=== PATIENT | female | born 1985 | race American Indian/Alaskan Native ===

== ENCOUNTER 2020-05-10 09:55 | Emergency (ER) | payer SELFPAY ==
[2020-05-10] MEDS ORDERED: levETIRAcetam 1000 MG/NS 0.75% 1,000 MG/100 ML BAG IV ONE ×2 (10:09→12:15)
[2020-05-10] MEDS ORDERED: KETOROLAC 30 MG/1 ML INJ IV ONE (10:09)
--- NOTE | 2020-05-10 10:14 | Emergency Department Report ---
ED Seizure HPI - General Chief Complaint: Seizure Stated Complaint: SEIZURE Time Seen by Provider: 05/10/20 10:06 Source: patient Mode of arrival: Stretcher Limitations: No Limitations - History of Present Illness MD Complaint: seizure -: During the night Description of Episode: tonic-clonic movement, post-event confusion Witnessed:: Yes Trauma: Yes (injury to the inner bottom lip) Seizure History: known seizure disorder, other (ran out of her medications yesterday) Place: home Associated Symptoms: tongue injury. denies: chest pain, confusion, cough, diaphoresis, fever/chills, loss of appetite, malaise, rash, shortness of breath, syncope, weakness, shoulder dislocation - Related Data Previous Rx's Medication Instructions Recorded Last Taken Type OXcarbazepine [Trileptal] 300 mg PO BID #60 tablet 05/10/20 Unknown Rx levETIRAcetam [Keppra TAB] 750 mg PO BID #60 tablet 05/10/20 Unknown Rx Allergies Allergy/AdvReac Type Severity Reaction Status Date / Time No Known Allergies Allergy Unverified 05/10/20 10:07 ED Review of Systems ROS: Stated complaint: SEIZURE Other details as noted in HPI Comment: All other systems reviewed and negative ED Past Medical Hx - Past Medical History Previous Medical History?: Yes Hx Hypertension: Yes Hx Seizures: Yes - Surgical History Past Surgical History?: Yes Hx Appendectomy: Yes - Social History Smoking Status: Never Smoker Substance Use Type: None - Medications Home Medications: Home Medications Medication Instructions Recorded Confirmed Last Taken Type OXcarbazepine [Trileptal] 300 mg PO BID #60 tablet 05/10/20 Unknown Rx levETIRAcetam [Keppra TAB] 750 mg PO BID #60 tablet 05/10/20 Unknown Rx ED Physical Exam - General Limitations: No Limitations General appearance: alert, in no apparent distress - Head Head exam: Present: atraumatic, normocephalic - Eye Eye exam: Present: normal appearance - ENT ENT exam: Present: mucous membranes moist - Expanded ENT Exam Expanded Mouth exam: Present: other (Patient with swelling and abrasion to the inner lower lip also is small abrasions to the tongue) - Neck Neck exam: Present: normal inspection - Respiratory Respiratory exam: Present: normal lung sounds bilaterally. Absent: respiratory distress - Cardiovascular Cardiovascular Exam: Present: regular rate, normal rhythm. Absent: systolic murmur, diastolic murmur, rubs, gallop - GI/Abdominal GI/Abdominal exam: Present: soft, normal bowel sounds - Extremities Exam Extremities exam: Present: normal inspection - Back Exam Back exam: Present: normal inspection - Neurological Exam Neurological exam: Present: alert, oriented X3 - Psychiatric Psychiatric exam: Present: normal affect, normal mood - Skin Skin exam: Present: warm, dry, intact, normal color. Absent: rash ED Course Vital Signs 05/10/20 05/10/20 05/10/20 09:58 10:08 12:30 Temperature 99 F 98.3 F Pulse Rate 85 87 Respiratory 16 16 20 Rate Blood Pressure 154/85 Blood Pressure 188/97 [Right] O2 Sat by Pulse 98 98 98 Oximetry ED Medical Decision Making - Medical Decision Making Patient had one additional seizure on her arrival. Patient was started on Keppra and long term through her IV pulled out and is wasted at least half of the Keppra dose that was given. Patient was ordered an additional gram of Keppra. She was given Ativan stop her seizure she has had no more seizure activity here in emergency department. Patient was stable for discharge and her medication will be refilled. Critical care attestation.: If time is entered above; I have spent that time in minutes in the direct care of this critically ill patient, excluding procedure time. ED Disposition Clinical Impression: Seizure, Seizure secondary to subtherapeutic anticonvulsant medication Lip abrasion Qualifiers: Encounter type: initial encounter Qualified Code(s): S00.511A - Abrasion of lip, initial encounter Disposition: - TO HOME OR SELFCARE Is pt being admited?: No Does the pt Need Aspirin: No Condition: Stable Instructions: Recurrent Seizures Adult (ED) Prescriptions: levETIRAcetam [Keppra TAB] 750 mg PO BID #60 tablet OXcarbazepine [Trileptal] 300 mg PO BID #60 tablet Time of Disposition: 13:46
[2020-05-10] MEDS ORDERED: LORazepam 2 MG/ML VIAL IV ONE (10:22)
[2020-05-10] MEDS ORDERED: ONDANSETRON 4 MG/2 ML INJ ONE (12:02)
[2020-05-10] MEDS ORDERED: ONDANSETRON 4 MG/2 ML INJ IV ONE (12:03)
[2020-05-10 12:32] VITALS: BP 188/97
== END 2020-05-10 14:39 | disposition home or self-care (01) ==
LOC: ED 09:55
DX: S00.511A Abrasion of lip, initial encounter (principal); G40.909 Epilepsy, unspecified, not intractable, without status epilepticus; I10 Essential (primary) hypertension; Z79.899 Other long term (current) drug therapy; Z90.49 Acquired absence of other specified parts of digestive tract; X58.XXXA Exposure to other specified factors, initial encounter; Y93.89 Activity, other specified; Y92.89 Other specified places as the place of occurrence of the external cause; Y99.8 Other external cause status
CPT/HCPCS: 96365; 96375; 99283; J1885; J1953; J2060; J2405

== ENCOUNTER 2020-07-30 17:05 | Emergency (ER) | payer SELFPAY ==
[2020-07-30] MEDS ORDERED: levETIRAcetam 1000 MG/NS 0.75% 1,000 MG/100 ML BAG IV ONE (17:58)
--- NOTE | 2020-07-30 18:08 | Emergency Department Report ---
ED Seizure HPI - General Chief Complaint: Seizure Stated Complaint: SEIZURE Time Seen by Provider: 07/30/20 17:56 Source: patient Mode of arrival: Ambulatory Limitations: No Limitations - History of Present Illness Initial Comments: Patient is 35 years old female with history of seizure. Patient currently taking Keppra 750 twice daily and Trileptal 300 mg twice a day also. Patient brought to the emergency room from home for evaluation of seizure. Patient stated that she had seizure this afternoon witnessed by her similar to her previous one. Patient also stated that she had 1 on Monday. Patient stated that she bit her lip on Monday and she bitted Again today. Patient denied any head injury, neck injury, chest pain, abdominal pain, nausea or vomiting. No shortness of breath, fever or chills. MD Complaint: seizure Description of Episode: loss of consciousness, tonic-clonic movement, post-event confusion Witnessed:: Yes Trauma: No Seizure History: known seizure disorder Place: home Possible Precipitating Event: none Associated Symptoms: denies other symptoms - Related Data Previous Rx's Medication Instructions Recorded Last Taken Type OXcarbazepine [Trileptal] 300 mg PO BID #60 tablet 06/07/20 Unknown Rx levETIRAcetam [Keppra TAB] 750 mg PO BID #60 tablet 06/07/20 Unknown Rx Allergies Allergy/AdvReac Type Severity Reaction Status Date / Time No Known Allergies Allergy Unverified 05/10/20 10:07 ED Review of Systems ROS: Stated complaint: SEIZURE Other details as noted in HPI Comment: All other systems reviewed and negative Constitutional: denies: chills, fever Respiratory: denies: cough, shortness of breath, SOB with exertion, SOB at rest, wheezing Cardiovascular: denies: chest pain, palpitations Gastrointestinal: denies: abdominal pain, nausea, vomiting Musculoskeletal: denies: back pain Neurological: denies: headache, weakness ED Past Medical Hx - Past Medical History Previous Medical History?: Yes Hx Hypertension: Yes Hx Seizures: Yes - Surgical History Past Surgical History?: Yes Hx Appendectomy: Yes - Social History Smoking Status: Never Smoker Substance Use Type: None - Medications Home Medications: Home Medications Medication Instructions Recorded Confirmed Last Taken Type OXcarbazepine [Trileptal] 300 mg PO BID #60 tablet 06/07/20 07/30/20 Unknown Rx levETIRAcetam [Keppra TAB] 750 mg PO BID #60 tablet 06/07/20 07/30/20 Unknown Rx ED Physical Exam - General Limitations: No Limitations General appearance: alert, in no apparent distress - Head Head exam: Present: atraumatic, normocephalic, normal inspection - Eye Eye exam: Present: normal appearance - ENT ENT exam: Present: normal exam, normal orophraynx, mucous membranes moist, other (Approximately 3 to 4days old laceration to the lower lip, no active bleeding.) - Neck Neck exam: Present: normal inspection, full ROM. Absent: tenderness, meningismus - Respiratory Respiratory exam: Present: normal lung sounds bilaterally - Cardiovascular Cardiovascular Exam: Present: regular rate, normal rhythm, normal heart sounds - GI/Abdominal GI/Abdominal exam: Present: soft, normal bowel sounds. Absent: distended, tenderness, guarding, rebound, rigid, hypoactive bowel sounds, organomegaly, mass, bruit, pulsatile mass, hernia - Extremities Exam Extremities exam: Present: normal inspection, full ROM, normal capillary refill. Absent: pedal edema, calf tenderness - Back Exam Back exam: Present: normal inspection, full ROM. Absent: CVA tenderness (R), CVA tenderness (L) - Neurological Exam Neurological exam: Present: alert, oriented X3, CN II-XII intact, normal gait, reflexes normal. Absent: motor sensory deficit - Psychiatric Psychiatric exam: Present: normal mood - Skin Skin exam: Present: warm, intact, normal color ED Course Vital Signs 07/30/20 17:55 Temperature 98.5 F Pulse Rate 77 Respiratory 16 Rate Blood Pressure 171/104 [Left] O2 Sat by Pulse 100 Oximetry ED Medical Decision Making - Lab Data Result diagrams: 07/30/20 18:45 07/30/20 18:45 - Medical Decision Making Patient is 35 years old female with history of seizure. Patient currently taking Keppra 750 twice daily and Trileptal 300 mg twice a day also. Patient brought to the emergency room from home for evaluation of seizure. Patient stated that she had seizure this afternoon witnessed by her similar to her previous one. Patient also stated that she had 1 on Monday. Patient stated that she bit her lip on Monday and she bitted Again today. Patient denied any head injury, neck injury, chest pain, abdominal pain, nausea or vomiting. No shortness of breath, fever or chills. Patient remained seizure-free in the ER. Patient received Keppra 1 g IV. Labs reviewed and is unremarkable. Advised patient to increase her Keppra to 1000 mg twice a day and to follow-up with her neurologist in the next 2 to 3days and to return to the ER if she develop any new symptoms. Critical care attestation.: If time is entered above; I have spent that time in minutes in the direct care of this critically ill patient, excluding procedure time. ED Disposition Clinical Impression: Seizure, Infected lip laceration Disposition: DC- TO HOME OR SELFCARE Is pt being admited?: No Condition: Stable Instructions: Wound Infection (ED), Recurrent Seizures Adult (ED) Referrals: PRIMARY CARE, [Primary Care Provider] - 3-5 Days
[2020-07-30] MEDS ORDERED: KETOROLAC 30 MG/1 ML INJ ONE (18:31)
[2020-07-30] MEDS ORDERED: KETOROLAC 30 MG/1 ML INJ IV ONE (18:35)
[2020-07-30 19:05] LABS: Basophils % (Auto) 0.5 % (0.0-1.8); Eosinophils # (Auto) 0.1 K/mm3 (0.0-0.4); Eosinophils % (Auto) 1.8 % (0.0-4.3); Hematocrit 32.1 % (30.3-42.9); Hemoglobin 10.1 gm/dl (10.1-14.3); Lymphocytes # (Auto) 1.9 K/mm3 (1.2-5.4); Mean Corpuscular HGB Conc 31 % (30-34); Mean Corpuscular Volume 75 fl (79-97); Monocytes # (Auto) 0.4 K/mm3 (0.0-0.8); Monocytes % (Auto) 9.2 % (0.0-7.3); Platelet Count 325 K/mm3 (140-440); Red Blood Count 4.29 M/mm3 (3.65-5.03); Red Cell Distribution Width 19.4 % (13.2-15.2)
[2020-07-30 19:25] LABS: Blood Urea Nitrogen 11 mg/dL (7-17); Calcium 8.9 mg/dL (8.4-10.2); Hemolysis Index 2
[2020-07-30 19:29] LABS: BUN/Creatinine Ratio 16
[2020-07-30 20:18] VITALS: BP 159/89
== END 2020-07-30 20:18 | disposition home or self-care (01) ==
LOC: ED 17:05
DX: S01.511A Laceration without foreign body of lip, initial encounter (principal); G40.909 Epilepsy, unspecified, not intractable, without status epilepticus; I10 Essential (primary) hypertension; Z90.49 Acquired absence of other specified parts of digestive tract; Z79.899 Other long term (current) drug therapy; W50.3XXA Accidental bite by another person, initial encounter; Y93.89 Activity, other specified; Y92.89 Other specified places as the place of occurrence of the external cause; Y99.8 Other external cause status
CPT/HCPCS: 36415; 80048; 84703; 85025; 96374; 96375; 99284; J1885; J1953

== ENCOUNTER 2020-09-05 07:08 | Emergency (ER) | payer MEDICAID ==
[2020-09-05] MEDS ORDERED: levETIRAcetam 1000 MG/NS 0.75% 1,000 MG/100 ML BAG IV ONE (07:39)
[2020-09-05 07:50] VITALS: BP 146/84
[2020-09-05 08:17] LABS: Basophils % (Auto) 0.3 % (0.0-1.8); Eosinophils % (Auto) 0.5 % (0.0-4.3); Hematocrit 32.7 % (30.3-42.9); Hemoglobin 10.7 gm/dl (10.1-14.3); Lymphocytes # (Auto) 1.4 K/mm3 (1.2-5.4); Lymphocytes % (Auto) 22.7 % (13.4-35.0); Mean Corpuscular HGB Conc 33 % (30-34); Mean Corpuscular Volume 75 fl (79-97); Monocytes # (Auto) 0.6 K/mm3 (0.0-0.8); Monocytes % (Auto) 9.5 % (0.0-7.3); Platelet Count 310 K/mm3 (140-440); Red Blood Count 4.39 M/mm3 (3.65-5.03); Red Cell Distribution Width 18.4 % (13.2-15.2)
[2020-09-05 08:29] LABS: BUN/Creatinine Ratio 16; Blood Urea Nitrogen 14 mg/dL (7-17); Calcium 9.1 mg/dL (8.4-10.2); Hemolysis Index 7
[2020-09-05] MEDS ORDERED: LORazepam 2 MG/ML VIAL IV ONE ×2 (09:13→10:16)
[2020-09-05] MEDS ORDERED: LORazepam 2 MG/ML VIAL ONE (09:14)
--- NOTE | 2020-09-05 09:21 | Emergency Department Report ---
ED Seizure HPI - General Chief Complaint: Seizure Stated Complaint: SEIZURE Time Seen by Provider: 09/05/20 07:39 Source: EMS Mode of arrival: Ambulatory Limitations: No Limitations - History of Present Illness Initial Comments: Patient is a 35-year-old female with past medical history of seizure disorder who had a tonic-clonic seizure today. Patient not had a seizure in approximately 1 month. She states she is compliant with her Keppra. Patient did bite her bottom lip during the seizure. She is no longer postictal and has no other complaints at this time. She denies cough cold congestion fevers or chills. - Related Data Previous Rx's Medication Instructions Recorded Last Taken Type levETIRAcetam [Keppra TAB] 750 mg PO BID #60 tablet 06/07/20 Unknown Rx cephALEXin [Keflex] 500 mg PO Q8HR #28 cap 07/30/20 Unknown Rx OXcarbazepine [Trileptal] 300 mg PO BID #60 tablet 09/05/20 Unknown Rx levETIRAcetam [Keppra TAB] 1,000 mg PO BID #60 tab 09/05/20 Unknown Rx Allergies Allergy/AdvReac Type Severity Reaction Status Date / Time No Known Allergies Allergy Unverified 05/10/20 10:07 ED Review of Systems ROS: Stated complaint: SEIZURE Other details as noted in HPI Comment: All other systems reviewed and negative ED Past Medical Hx - Past Medical History Previous Medical History?: Yes Hx Hypertension: Yes Hx Seizures: Yes - Surgical History Past Surgical History?: Yes Hx Appendectomy: Yes - Social History Smoking Status: Never Smoker Substance Use Type: None - Medications Home Medications: Home Medications Medication Instructions Recorded Confirmed Last Taken Type levETIRAcetam [Keppra TAB] 750 mg PO BID #60 tablet 06/07/20 07/30/20 Unknown Rx cephALEXin [Keflex] 500 mg PO Q8HR #28 cap 07/30/20 Unknown Rx OXcarbazepine [Trileptal] 300 mg PO BID #60 tablet 09/05/20 Unknown Rx levETIRAcetam [Keppra TAB] 1,000 mg PO BID #60 tab 09/05/20 Unknown Rx ED Physical Exam - General Limitations: No Limitations General appearance: alert, in no apparent distress - Head Head exam: Present: atraumatic, normocephalic - Eye Eye exam: Present: normal appearance - ENT ENT exam: Present: mucous membranes moist, other (2 cm laceration to the inner lower lip. This is not through and through. She does have some mild swelling to the bottom lip as well.) - Neck Neck exam: Present: normal inspection - Respiratory Respiratory exam: Present: normal lung sounds bilaterally. Absent: respiratory distress, wheezes, rales - Cardiovascular Cardiovascular Exam: Present: regular rate, normal rhythm, normal heart sounds. Absent: systolic murmur, diastolic murmur, rubs, gallop - GI/Abdominal GI/Abdominal exam: Present: soft, normal bowel sounds. Absent: distended, tenderness, guarding, rebound - Extremities Exam Extremities exam: Present: normal inspection - Back Exam Back exam: Present: normal inspection - Neurological Exam Neurological exam: Present: alert, oriented X3 - Psychiatric Psychiatric exam: Present: normal affect, normal mood - Skin Skin exam: Present: warm, dry, intact, normal color. Absent: rash ED Course Vital Signs 09/05/20 09/05/20 07:45 10:35 Temperature 98.4 F Pulse Rate 93 H Respiratory 18 18 Rate Blood Pressure 146/84 Blood Pressure 142/86 [Right] O2 Sat by Pulse 100 100 Oximetry - Reevaluation(s) Reevaluation #1: 09/05/20 09:17 Patient's first dose of Keppra. To run out onto the bed. Patient pulled her IV out. At this time second attempt I given the patient a bolus of Keppra is underway with the patient and not having a seizure. Patient given 2 mg of Ativan. We will continue to monitor the patient. Patient is given Keppra infusion now. 09/05/20 14:37 Reevaluation #2: 09/05/20 14:38 While the patient was approximately 50% done with her Keppra infusion she had another grand mal seizure. She had to be given another 2 mg of Ativan. Watch the patient for several hours and she now is much more coherent but still sligh tly groggy from the Ativan. Keppra infusion has finished. Patient will be able to be discharged after she is more steady on her feet. ED Medical Decision Making - Lab Data Result diagrams: 09/05/20 08:02 09/05/20 08:02 Lab Results 10/24/20 10/24/20 Range/Units 08:02 08:02 WBC 6.1 (4.5-11.0) K/mm3 RBC 4.39 (3.65-5.03) M/mm3 Hgb 10.7 (10.1-14.3) gm/dl Hct 32.7 (30.3-42.9) % MCV 75 L (79-97) fl MCH 24 L (28-32) pg MCHC 33 (30-34) % RDW 18.4 H (13.2-15.2) % Plt Count 310 (140-440) K/mm3 Lymph % (Auto) 22.7 (13.4-35.0) % [place] % (Auto) 9.5 H (0.0-7.3) % Eos % (Auto) 0.5 (0.0-4.3) % Baso % (Auto) 0.3 (0.0-1.8) % Lymph # (Auto) 1.4 (1.2-5.4) K/mm3 [place] # (Auto) 0.6 (0.0-0.8) K/mm3 Eos # (Auto) 0.0 (0.0-0.4) K/mm3 Baso # (Auto) 0.0 (0.0-0.1) K/mm3 Seg Neutrophils % 67.0 (40.0-70.0) % Seg Neutrophils # 4.1 (1.8-7.7) K/mm3 Sodium 138 (137-145) mmol/L Potassium 4.3 (3.6-5.0) mmol/L Chloride 106.7 (98-107) mmol/L Carbon Dioxide 22 (22-30) mmol/L Anion Gap 14 mmol/L BUN 14 (7-17) mg/dL Creatinine 0.9 (0.6-1.2) mg/dL Estimated GFR > 60 ml/min BUN/Creatinine Ratio 16 % Glucose 99 (65-100) mg/dL Calcium 9.1 (8.4-10.2) mg/dL Critical care attestation.: If time is entered above; I have spent that time in minutes in the direct care of this critically ill patient, excluding procedure time. ED Disposition Clinical Impression: Seizure Disposition: DC- TO HOME OR SELFCARE Is pt being admited?: No Does the pt Need Aspirin: No Condition: Stable Instructions: Recurrent Seizures Adult (ED) Prescriptions: levETIRAcetam [Keppra TAB] 1,000 mg PO BID #60 tab OXcarbazepine [Trileptal] 300 mg PO BID #60 tablet Referrals: DENY FORTUNE MD [Referring] - 3-5 Days Time of Disposition: 14:39
[2020-09-05] MEDS ORDERED: KETOROLAC 60 MG/2 ML INJ ONE (14:05)
[2020-09-05] MEDS ORDERED: KETOROLAC 30 MG/1 ML INJ IV ONE (15:28)
== END 2020-09-05 15:58 | disposition home or self-care (01) ==
LOC: ED 07:08
DX: R56.9 Unspecified convulsions (principal); I10 Essential (primary) hypertension; Z90.49 Acquired absence of other specified parts of digestive tract; Z79.899 Other long term (current) drug therapy
CPT/HCPCS: 36415; 80048; 85025; 96374; 96375; 96376; 99284; J1885; J1953; J2060

== ENCOUNTER 2020-09-14 15:43 | Emergency (ER) | payer MEDICAID ==
--- NOTE | 2020-09-14 16:31 | Emergency Department Report ---
Blank Doc - Documentation Documentation: 35-year-old female that was sent by her OBGYN for HTN. Stated is 7 weeks preg nant. This initial assessment/diagnostic orders/clinical plan/treatment(s) is/are subject to change based on patient's health status, clinical progression and re- assessment by fellow clinical providers in the ED. Further treatment and workup at subsequent clinical providers discretion. Patient/guardians urged not to elope from the ED as their condition may be serious if not clinically assessed and managed. Initial orders include: 1- Patient sent to [facility] for further evaluation and treatment 2- labs 3- UA
[2020-09-14 17:00] LABS: Basophils % (Auto) 0.7 % (0.0-1.8); Eosinophils # (Auto) 0.1 K/mm3 (0.0-0.4); Eosinophils % (Auto) 1.2 % (0.0-4.3); Hematocrit 32.1 % (30.3-42.9); Hemoglobin 10.3 gm/dl (10.1-14.3); Lymphocytes % (Auto) 41.2 % (13.4-35.0); Mean Corpuscular HGB Conc 32 % (30-34); Mean Corpuscular Volume 76 fl (79-97); Monocytes # (Auto) 0.4 K/mm3 (0.0-0.8); Monocytes % (Auto) 7.9 % (0.0-7.3); Platelet Count 277 K/mm3 (140-440); Red Blood Count 4.25 M/mm3 (3.65-5.03); Red Cell Distribution Width 18.7 % (13.2-15.2)
[2020-09-14 17:23] LABS: Alanine Aminotransferase 15 units/L (7-56); Albumin 3.9 g/dL (3.9-5); BUN/Creatinine Ratio 14; Blood Urea Nitrogen 11 mg/dL (7-17); Calcium 8.9 mg/dL (8.4-10.2); Hemolysis Index 2
--- NOTE | 2020-09-14 17:39 | Emergency Department Report ---
ED General Adult HPI - General Chief complaint: Medical Clearance Stated complaint: HBP Time Seen by Provider: 09/14/20 16:30 Source: patient Mode of arrival: Ambulatory Limitations: No Limitations - History of Present Illness Initial comments: 35-year-old female with history of chronic hypertension presents to ED with elevated blood pressure. Patient was seen at [facility] OB today, found to be 7 weeks . While at the appointment, patient found to have elevated blood pressure and was advised to come to the ED for treatment. Patient denies any headache, dizziness, chest pain, shortness of breath. Patient cannot remember what medication she was on previously. -: unknown Improves with: none Worsens with: cold therapy Associated Symptoms: denies other symptoms. denies: chest pain, headaches, shortness of breath - Related Data Previous Rx's Medication Instructions Recorded Last Taken Type levETIRAcetam [Keppra TAB] 750 mg PO BID #60 tablet 06/07/20 Unknown Rx cephALEXin [Keflex] 500 mg PO Q8HR #28 cap 07/30/20 Unknown Rx OXcarbazepine [Trileptal] 300 mg PO BID #60 tablet 09/05/20 Unknown Rx levETIRAcetam [Keppra TAB] 1,000 mg PO BID #60 tab 09/05/20 Unknown Rx labetaloL [Labetalol 100mg TAB] 100 mg PO BID #60 tablet 09/14/20 Unknown Rx Allergies Allergy/AdvReac Type Severity Reaction Status Date / Time No Known Allergies Allergy Unverified 05/10/20 10:07 ED Review of Systems ROS: Stated complaint: HBP Other details as noted in HPI Comment: All other systems reviewed and negative Respiratory: denies: shortness of breath Cardiovascular: denies: chest pain Neurological: denies: headache, vertigo ED Past Medical Hx - Past Medical History Previous Medical History?: Yes Hx Hypertension: Yes Hx Seizures: Yes - Surgical History Past Surgical History?: Yes Hx Appendectomy: Yes - Social History Smoking Status: Never Smoker Substance Use Type: None - Medications Home Medications: Home Medications Medication Instructions Recorded Confirmed Last Taken Type levETIRAcetam [Keppra TAB] 750 mg PO BID #60 tablet 06/07/20 07/30/20 Unknown Rx cephALEXin [Keflex] 500 mg PO Q8HR #28 cap 07/30/20 Unknown Rx OXcarbazepine [Trileptal] 300 mg PO BID #60 tablet 09/05/20 Unknown Rx levETIRAcetam [Keppra TAB] 1,000 mg PO BID #60 tab 09/05/20 Unknown Rx labetaloL [Labetalol 100mg TAB] 100 mg PO BID #60 tablet 09/14/20 Unknown Rx ED Physical Exam - General Limitations: No Limitations General appearance: alert, in no apparent distress - Head Head exam: Present: atraumatic, normocephalic - Eye Eye exam: Present: normal appearance, EOMI - ENT ENT exam: Present: mucous membranes moist - Neck Neck exam: Present: normal inspection - Respiratory Respiratory exam: Present: normal lung sounds bilaterally. Absent: respiratory distress - Cardiovascular Cardiovascular Exam: Present: regular rate, normal rhythm - GI/Abdominal GI/Abdominal exam: Present: soft. Absent: distended, tenderness - Extremities Exam Extremities exam: Present: normal inspection - Neurological Exam Neurological exam: Present: alert, oriented X3, CN II-XII intact. Absent: motor sensory deficit - Psychiatric Psychiatric exam: Present: normal affect, normal mood - Skin Skin exam: Present: warm, dry, intact, normal color ED Course Vital Signs 09/14/20 09/14/20 15:48 18:00 Temperature 97.8 F Pulse Rate 82 Respiratory 18 Rate Blood Pressure 170/101 Blood Pressure 176/98 [Right] O2 Sat by Pulse 100 100 Oximetry ED Medical Decision Making - Lab Data Result diagrams: 09/14/20 16:50 09/14/20 16:50 - Medical Decision Making 35-year-old female with asymptomatic hypertension, history of chronic hypertension, not currently on any medications. Patient is currently 7 weeks . Labs are normal. Patient given prescription for labetalol. Advised OB follow-up. Return precautions given. Critical care attestation.: If time is entered above; I have spent that time in minutes in the direct care of this critically ill patient, excluding procedure time. ED Disposition Clinical Impression: Uncontrolled hypertension, Early stage of Disposition: DC-01 TO HOME OR SELFCARE Is pt being admited?: No Condition: Stable Instructions: Hypertension (ED) Prescriptions: labetaloL [Labetalol 100mg TAB] 100 mg PO BID #60 tablet Referrals: [facility] [Provider Group] - 3-5 Days Time of Disposition: 17:39
[2020-09-14 18:12] VITALS: BP 170/101
[2020-09-14 18:15] LABS: Bilirubin,Urine NEG (Negative); Blood,Urine NEG (Negative); Color,Urine Yellow (Yellow); Mucus,Urine FEW /HPF; Protein,Urine <15 mg/dL mg/dL (Negative); Urobilinogen,Urine < 2.0 mg/dL (<2.0)
== END 2020-09-14 18:05 | disposition home or self-care (01) ==
LOC: ED 15:43
DX: O16.1 Unspecified maternal hypertension, first trimester (principal); Z79.899 Other long term (current) drug therapy; Z86.69 Personal history of other diseases of the nervous system and sense organs; Z90.49 Acquired absence of other specified parts of digestive tract; Z3A.01 Less than 8 weeks gestation of pregnancy
CPT/HCPCS: 36415; 80053; 81001; 84702; 85025

== ENCOUNTER 2020-11-16 10:10 | Emergency (ER) | payer MEDICAID ==
[2020-11-16] MEDS ORDERED: levETIRAcetam 1000 MG/NS 0.75% 1,000 MG/100 ML BAG IV ONE (10:18)
--- NOTE | 2020-11-16 10:20 | Emergency Department Report ---
ED Seizure HPI - General Stated Complaint: SEIZURE Time Seen by Provider: 11/16/20 10:18 Source: patient, EMS, old records reviewed Mode of arrival: Stretcher Limitations: Altered Mental Status - History of Present Illness Initial Comments: 35-year female the past medical history of seizures and elevated blood pressure presents to the hospital after having multiple seizures prior to arrival. Patient presents postictal and unable to provide history of present illness. EMS obtained history from boyfriend at the scene who reported patient had a seizure and has smoked marijuana from a new supplier. Patient also has did not have her a.m. seizure medication. EMS witnessed 2 seizures in route and provided Versed 2.5 mg IV. Patient had a third witnessed seizure in route and received additional 2.5 Versed IV. Patient also apparently complained of nausea in route. Previous medical record reviewed. Patient has been here multiple times for seizure disorder. In July 2020 visit note that she is on Keppra 750 twice daily and Trileptal 300 twice daily. Last visit on record was from September 14, 2020 and patient is noted to be "7 weeks " but only had a quant of 305 at that time. Patient was noted to be hypertensive and was started on labetalol. It is unclear the status of that however, boyfriend did not mention to EMS providers. It is also unclear patient is currently taken blood pressure medication at this time. Patient presents altered, mildly agitated, with nonrebreather and nasal trumpet in place - Related Data Previous Rx's Medication Instructions Recorded Last Taken Type levETIRAcetam [Keppra TAB] 750 mg PO BID #60 tablet 06/07/20 Unknown Rx cephALEXin [Keflex] 500 mg PO Q8HR #28 cap 07/30/20 Unknown Rx OXcarbazepine [Trileptal] 300 mg PO BID #60 tablet 09/05/20 Unknown Rx levETIRAcetam [Keppra TAB] 1,000 mg PO BID #60 tab 09/05/20 Unknown Rx labetaloL [Labetalol 100mg TAB] 100 mg PO BID #60 tablet 09/14/20 Unknown Rx Ibuprofen [Motrin] 800 mg PO Q8HR PRN #20 tablet 11/16/20 Unknown Rx Allergies Allergy/AdvReac Type Severity Reaction Status Date / Time No Known Allergies Allergy Unverified 11/16/20 10:25 ED Review of Systems ROS: Stated complaint: SEIZURE Other details as noted in HPI Comment: Unobtainable due to pts medical conditions ED Past Medical Hx - Past Medical History Hx Hypertension: Yes Hx Seizures: Yes - Surgical History Hx Appendectomy: Yes - Social History Smoking Status: Never Smoker Substance Use Type: None - Medications Home Medications: Home Medications Medication Instructions Recorded Confirmed Last Taken Type levETIRAcetam [Keppra TAB] 750 mg PO BID #60 tablet 06/07/20 07/30/20 Unknown Rx cephALEXin [Keflex] 500 mg PO Q8HR #28 cap 07/30/20 Unknown Rx OXcarbazepine [Trileptal] 300 mg PO BID #60 tablet 09/05/20 Unknown Rx levETIRAcetam [Keppra TAB] 1,000 mg PO BID #60 tab 09/05/20 Unknown Rx labetaloL [Labetalol 100mg TAB] 100 mg PO BID #60 tablet 09/14/20 Unknown Rx Ibuprofen [Motrin] 800 mg PO Q8HR PRN #20 tablet 11/16/20 Unknown Rx ED Physical Exam - Other Other exam information: General: Postictal Head: Atraumatic Eyes: normal appearance, pupils equal reactive to ENT: Moist mucous membranes Neck: Normal appearance, no midline tenderness Chest: Clear to auscultation bilaterally CV: Regular rate and rhythm Abdomen: Soft, normal bowel sounds, nontender, nondistended, no rebound or guarding Back: Normal inspection Extremity: Normal inspection, full range of motion Neuro: Postictal/altered, moves all extremities with 5/5 strength, agitated would not follow commands. Sensation grossly intact Psych: Appropriate behavior Skin: No rash ED Course Vital Signs 11/16/20 11/16/20 11/16/20 10:33 10:44 11:01 Temperature Pulse Rate 89 Respiratory 29 H 20 27 H Rate Blood Pressure 158/98 O2 Sat by Pulse 100 100 100 Oximetry 11/16/20 11/16/20 11/16/20 11:31 12:01 12:28 Temperature Pulse Rate 76 71 78 Respiratory 21 23 Rate Blood Pressure 197/106 188/111 182/107 O2 Sat by Pulse 100 100 Oximetry 11/16/20 11/16/20 11/16/20 13:02 14:32 14:34 Temperature 98.8 F Pulse Rate Respiratory 18 18 Rate Blood Pressure O2 Sat by Pulse Oximetry - Reevaluation(s) Reevaluation #1: 11/16/20 13:50 Patient is now alert and oriented at this time. Complains of generalized body aches and headache. CT head unremarkable. Patient informed that she had multiple seizures. She confirms that she did not have her a.m. medications for seizures of blood pressure but is otherwise compliant with her Trileptal, Keppra, and labetalol. She also confirmed that she did use marijuana and has recently had a miscarriage which is consistent with her decreasing hCG levels 11/16/20 15:31 Patient provided IV morphine and Toradol for generalized body aches secondary to multiple seizures. Blood pressure remains elevated despite multiple doses of IV labetalol. P.o. labetalol ordered at the dose she is prescribed for home. Patient's mental status is improving. Patient is sleepy but easily arousable. ED Medical Decision Making - Lab Data Result diagrams: 11/16/20 10:41 11/16/20 10:41 Lab Results 11/16/20 11/16/20 11/16/20 Range/Units 10:41 10:41 10:41 WBC 7.3 (4.5-11.0) K/mm3 RBC 3.87 (3.65-5.03) M/mm3 Hgb 10.1 (10.1-14.3) gm/dl Hct 31.2 (30.3-42.9) % MCV 81 (79-97) fl MCH 26 L (28-32) pg MCHC 32 (30-34) % RDW 19.1 H (13.2-15.2) % Plt Count 314 (140-440) K/mm3 Lymph % (Auto) 15.0 (13.4-35.0) % Schley % (Auto) 3.8 (0.0-7.3) % Eos % (Auto) 0.2 (0.0-4.3) % Baso % (Auto) 0.5 (0.0-1.8) % Lymph # (Auto) 1.1 L (1.2-5.4) K/mm3 Schley # (Auto) 0.3 (0.0-0.8) K/mm3 Eos # (Auto) 0.0 (0.0-0.4) K/mm3 Baso # (Auto) 0.0 (0.0-0.1) K/mm3 Seg Neutrophils % 80.5 H (40.0-70.0) % Seg Neutrophils # 5.9 (1.8-7.7) K/mm3 Sodium 138 (137-145) mmol/L Potassium 4.8 (3.6-5.0) mmol/L Chloride 106.9 (98-107) mmol/L Carbon Dioxide 14 L (22-30) mmol/L Anion Gap 22 mmol/L BUN 11 (7-17) mg/dL Creatinine 1.1 (0.6-1.2) mg/dL Estimated GFR > 60 ml/min BUN/Creatinine Ratio 10 % Glucose 97 (65-100) mg/dL Calcium 9.5 (8.4-10.2) mg/dL Magnesium 2.60 H (1.7-2.3) mg/dL HCG, Quant 4.18 H (0-4) mIU/mL Urine Opiates Screen Urine Methadone Screen Ur Barbiturates Screen Ur Phencyclidine Scrn Ur Amphetamines Screen U Benzodiazepines Scrn Urine Cocaine Screen U Marijuana (THC) Screen Drugs of Abuse Note 11/16/20 Range/Units Unknown WBC (4.5-11.0) K/mm3 RBC (3.65-5.03) M/mm3 Hgb (10.1-14.3) gm/dl Hct (30.3-42.9) % MCV (79-97) fl MCH (28-32) pg MCHC (30-34) % RDW (13.2-15.2) % Plt Count (140-440) K/mm3 Lymph % (Auto) (13.4-35.0) % Schley % (Auto) (0.0-7.3) % Eos % (Auto) (0.0-4.3) % Baso % (Auto) (0.0-1.8) % Lymph # (Auto) (1.2-5.4) K/mm3 Schley # (Auto) (0.0-0.8) K/mm3 Eos # (Auto) (0.0-0.4) K/mm3 Baso # (Auto) (0.0-0.1) K/mm3 Seg Neutrophils % (40.0-70.0) % Seg Neutrophils # (1.8-7.7) K/mm3 Sodium (137-145) mmol/L Potassium (3.6-5.0) mmol/L Chloride (98-107) mmol/L Carbon Dioxide (22-30) mmol/L Anion Gap mmol/L BUN (7-17) mg/dL Creatinine (0.6-1.2) mg/dL Estimated GFR ml/min BUN/Creatinine Ratio % Glucose (65-100) mg/dL Calcium (8.4-10.2) mg/dL Magnesium (1.7-2.3) mg/dL HCG, Quant (0-4) mIU/mL Urine Opiates Screen Negative Urine Methadone Screen Negative Ur Barbiturates Screen Negative Ur Phencyclidine Scrn Negative Ur Amphetamines Screen Negative U Benzodiazepines Scrn Positive Urine Cocaine Screen Negative U Marijuana (THC) Screen Positive Drugs of Abuse Note Disclamer - Radiology Data Radiology results: report reviewed CHEST 1 VIEW INDICATION: multiple seizures. COMPARISON: None FINDINGS: Support devices: None. Heart: Within normal limits. Lungs/Pleura: No acute air space or interstitial disease. Mild bibasilar atelectatic changes are noted. Additional findings: None. IMPRESSION: Mild bibasilar atelectatic changes. No acute process. CT BRAIN: 11/16/2020 INDICATION / CLINICAL INFORMATION: multiple seizures, postictal, elevated bp. COMPARISON: 06/07/2020 FINDINGS: BRAIN/INTRACRANIAL STRUCTURES: Unenhanced CT images of the brain demonstrate no evidence of acute intracranial abnormality. Ventricles and sulci are normal in size and shape. There is no evidence of ischemic injury, hemorrhage, or mass. There are no abnormal extra-axial fluid collections. EXTRACRANIAL STRUCTURES: Unremarkable. IMPRESSION: Negative unenhanced CT of the brain. No significant change when compared to 06/07/2020. - Medical Decision Making 35-year-old female presents to the hospital complaints of multiple seizures and missing her a.m. dose of medications. Also noted to be hypertensive with previous history. Patient treated with Keppra and Trileptal with no further seizure activity. Patient given IV labetalol in the ED and p.o. labetalol prior to discharge. Previous chronic hypertension as per previous medical record review. Currently she does not have any signs of hypertensive emergency Critical Care Time: Yes Critical care time in (mins) excluding proc time.: 35 Critical care attestation.: If time is entered above; I have spent that time in minutes in the direct care of this critically ill patient, excluding procedure time. ED Disposition Clinical Impression: Seizures, Uncontrolled hypertension, Marijuana use Disposition: TO HOME OR SELFCARE Is pt being admited?: No Does the pt Need Aspirin: No Condition: Stable Instructions: Epilepsy, Hypertension, Adult, [id number], Hypertension (ED) Additional Instructions: Take your current medications as prescribed. Follow-up with your doctor or doctor/clinic provided. Return if symptoms worsen as indicated by your discharge instructions. Prescriptions: Ibuprofen [Motrin] 800 mg PO Q8HR PRN #20 tablet PRN Reason: Pain , Severe (7-10) Referrals: PRIMARY CARE, [Primary Care Provider] - 3-5 Days LYUBOV RIOS MD [Staff Physician] - 3-5 Days (Neurologist) [facility] [Provider Group] - 3-5 Days (Primary care clinic)
[2020-11-16] MEDS ORDERED: ONDANSETRON 4 MG/2 ML INJ IV ONE (10:29)
[2020-11-16 11:29] LABS: Basophils % (Auto) 0.5 % (0.0-1.8); Eosinophils % (Auto) 0.2 % (0.0-4.3); Hematocrit 31.2 % (30.3-42.9); Hemoglobin 10.1 gm/dl (10.1-14.3); Lymphocytes # (Auto) 1.1 K/mm3 (1.2-5.4); Mean Corpuscular HGB Conc 32 % (30-34); Mean Corpuscular Volume 81 fl (79-97); Monocytes # (Auto) 0.3 K/mm3 (0.0-0.8); Monocytes % (Auto) 3.8 % (0.0-7.3); Platelet Count 314 K/mm3 (140-440); Red Blood Count 3.87 M/mm3 (3.65-5.03); Red Cell Distribution Width 19.1 % (13.2-15.2)
[2020-11-16 11:49] LABS: BUN/Creatinine Ratio 10; Blood Urea Nitrogen 11 mg/dL (7-17); Calcium 9.5 mg/dL (8.4-10.2); Hemolysis Index 0
--- NOTE | 2020-11-16 12:39 | XRay Report ---
CHEST 1 VIEW INDICATION: multiple seizures. COMPARISON: None FINDINGS: Support devices: None. Heart: Within normal limits. Lungs/Pleura: No acute air space or interstitial disease. Mild bibasilar atelectatic changes are note d. Additional findings: None. IMPRESSION: Mild bibasilar atelectatic changes. No acute process. Signer Name: Garland Gonsales Jr, MD Signed: 11/16/2020 12:35 PM Workstation Name: [id number]
[2020-11-16] MEDS ORDERED: OXcarbazepine 150 MG TAB PO ONE (13:08)
[2020-11-16 13:35] LABS: Amphetamine Screen,Urine Negative; Cocaine Screen,Urine Negative; Methadone Screen,Urine Negative; Opiate Screen,Urine Negative
--- NOTE | 2020-11-16 13:41 | Cat Scan Report ---
CT BRAIN: 11/16/2020 INDICATION / CLINICAL INFORMATION: multiple seizures, postictal, elevated bp. COMPARISON: 06/07/2020 FINDINGS: BRAIN/INTRACRANIAL STRUCTURES: Unenhanced CT images of the brain demonstrate no evidence of acute int racranial abnormality. Ventricles and sulci are normal in size and shape. There is no evidence of ischemic injury, hemorrhage, or mass. There are no abnormal extra-axial fluid collections. EXTRACRANIAL STRUCTURES: Unremarkable. IMPRESSION: Negative unenhanced CT of the brain. No significant change when compared to 06/07/2020. All CT scans at this location are performed using dose reduction to ALARA by means of automated expos ure control. Signer Name: Placido Perez MD Signed: 11/16/2020 1:36 PM Workstation Name: [email or web address]
[2020-11-16 13:46] LABS: Benzodiazepines Screen,Urine Positive; Cannabinoid Screen,Urine Positive
[2020-11-16] MEDS ORDERED: MORPHINE 4 MG/1 ML INJ IV ONE (13:50)
[2020-11-16] MEDS ORDERED: KETOROLAC 30 MG/1 ML INJ IV ONE (13:51)
[2020-11-16 16:51] VITALS: BP 190/114
== END 2020-11-16 16:51 | disposition home or self-care (01) ==
LOC: ED 10:10
DX: R56.9 Unspecified convulsions (principal); I10 Essential (primary) hypertension; F12.10 Cannabis abuse, uncomplicated; Z90.49 Acquired absence of other specified parts of digestive tract; Z79.1 Long term (current) use of non-steroidal anti-inflammatories (NSAID); Z79.899 Other long term (current) drug therapy
CPT/HCPCS: 36415; 70450; 71045; 80048; 80307; 83735; 84702; 85025; 96365; 96366; 96375; 96376; 99285; J1885; J1953; J2270; J2405